=== PATIENT | male | born 1950 | race Caucasian/White ===

== ENCOUNTER 2019-11-18 06:26 | Emergency (ER) | payer OTHER ==
[~2019-11-18] VITALS: Ht 177.8 cm; Wt 84.1 kg
[2019-11-18 06:30] VITALS: BP 132/97
[2019-11-18 06:54] LABS: CLARITY,URINE CLEAR (Clear); COLOR,URINE YELLOW (Yellow); GLUCOSE, URINE NEGATIVE (Neg); KETONES,URINE NEGATIVE (Neg); LEUKOCYTE ESTERASE ,URINE NEGATIVE (Neg); NITRITES, URINE NEGATIVE (Neg); OCCULT BLOOD,URINE TRACE-INTACT (Neg); PH,URINE 6.5 (4.8-8.0); PROTEIN,URINE NEGATIVE (Neg); UROBILINOGEN,URINE 0.2 E.U/dL (0.2-1.0)
[2019-11-18 06:55] LABS: UA COLLECTION TYPE CLN CATCH MIDSTREAM
[2019-11-18 07:26] LABS: BACTERIA,URINE FEW /HPF (Neg); SQUAMOUS EPITHELIAL CELL,UR FEW /LPF (FEW)
[2019-11-18 07:27] LABS: RBC,URINE 0-2 /HPF (0-2); WBC,URINE 0-4 /HPF (0-4)
== END 2019-11-18 07:39 | disposition home or self-care (01) ==
LOC: ER 06:27
DX: R33.9 Retention of urine, unspecified (principal); Z88.1 Allergy status to other antibiotic agents
CPT/HCPCS: 81001; 99283

== ENCOUNTER 2019-11-27 02:20 | Emergency (ER) | payer OTHER ==
[~2019-11-27] VITALS: Ht 177.8 cm; Wt 80.0 kg
[2019-11-27 02:39] VITALS: BP 150/102
--- NOTE | 2019-11-27 02:54 | NUR ---
ON HOLD WITH POISON CONTROL
--- NOTE | 2019-11-27 03:24 | NUR ---
poison control contacted spoke with [place], poison control verbalized if lungs are clear and saturation wnl patient is clear from poison control following patient tx, Dr. Aguilar aware
== END 2019-11-27 03:50 | disposition home or self-care (01) ==
LOC: ER 02:21
DX: R68.84 Jaw pain (principal); Z77.9 Other contact with and (suspected) exposures hazardous to health; Z00.00 Encounter for general adult medical examination without abnormal findings; Z79.899 Other long term (current) drug therapy
CPT/HCPCS: 99281; 99283

== ENCOUNTER 2020-07-01 02:57 | Emergency (ER) | payer OTHER ==
[2020-07-01 03:05] VITALS: BP 136/84
[2020-07-01] MEDS ORDERED: ondansetron/PF 4mg/2ml inj IV ONE (03:10)
[2020-07-01] MEDS ORDERED: normal saline 1000ML IV soln IVB ONE (03:10)
[2020-07-01 03:29] LABS: BASOPHILS # (AUTO) 0.1 X10'3 (0-0.2); BASOPHILS % (AUTO) 0.6 % (0-1); EOSINOPHILS # (AUTO) 0.2 X10'3 (0-0.9); EOSINOPHILS % (AUTO) 0.9 % (0-6); HEMATOCRIT 48.9 % (42.0-52.0); HEMOGLOBIN 16.2 g/dl (14.0-17.9); LYMPHOCYTES # (AUTO) 0.5 X10'3 (1.1-4.8); LYMPHOCYTES % (AUTO) 2.7 % (21-51); MEAN CORPUSCULAR HEMOGLOBIN 28.6 PG (27.0-31.0); MEAN CORPUSCULAR HGB CONC 33.1 g/dL (33.0-36.5); MEAN CORPUSCULAR VOLUME 86.4 FL (78-98); MEAN PLATELET VOLUME 9.1 FL (7.4-10.4); MONOCYTES # (AUTO) 1.1 X10'3 (0-0.9); MONOCYTES % (AUTO) 5.5 % (2-12); NEUTROPHILS % (AUTO) 90.3 % (42-75); PLATELET COUNT 214 X10'3 (140-440); RED BLOOD COUNT 5.66 X10'6 (4.70-6.10); RED CELL DISTRIBUTION WIDTH 14.1 % (11.5-14.5); WHITE BLOOD COUNT 19.9 X10'3 (4.5-11.0)
[2020-07-01 03:31] LABS: PARTIAL THROMBOPLASTIN TIME 26 SECONDS (22-32)
[2020-07-01 03:34] LABS: ALANINE AMINOTRANSFERASE 33 U/L (12-78); ALBUMIN 3.6 G/DL (3.4-5.0); ALBUMIN/GLOBULIN RATIO 0.9 (1.1-1.5); ALKALINE PHOSPHATASE 93 IU/L (46-116); ANION GAP 7 (8-16); ASPARTATE AMINO TRANSFERASE 20 U/L (10-37); BILIRUBIN,TOTAL 0.3 MG/DL (0.1-1.0); BLOOD UREA NITROGEN 16 MG/DL (7-18); BUN/CREATININE RATIO 12.7 (5.4-32.0); CALCIUM 8.4 MG/DL (8.5-10.1); CHLORIDE 104 MMOL/L (99-107); CREATININE 1.26 MG/DL (0.60-1.10); GLUCOSE 106 MG/DL (70-104); LIPASE 193 U/L (73-393); MAGNESIUM 1.9 MG/DL (1.5-2.4); POTASSIUM 3.8 MMOL/L (3.5-5.1); SODIUM 139 MMOL/L (135-145); TOTAL CARBON DIOXIDE 27.8 MMOL/L (24-32); TOTAL PROTEIN 7.8 G/DL (6.4-8.2); eGFR 56 ML/MIN
[2020-07-01 04:33] LABS: CLARITY,URINE CLEAR (Clear); COLOR,URINE YELLOW (Yellow); GLUCOSE, URINE NEGATIVE (Neg); KETONES,URINE NEGATIVE (Neg); LEUKOCYTE ESTERASE ,URINE NEGATIVE (Neg); NITRITES, URINE NEGATIVE (Neg); OCCULT BLOOD,URINE NEGATIVE (Neg); PROTEIN,URINE NEGATIVE (Neg); UROBILINOGEN,URINE 0.2 E.U/dL (0.2-1.0)
[2020-07-01 04:37] LABS: UA COLLECTION TYPE VOIDED
[2020-07-01] MEDS ORDERED: ONDA4TAB6 PO (04:47)
[2020-07-01 05:14] LABS: PLATELET ESTIMATE NORMAL; TOTAL CELLS COUNTED 100
== END 2020-07-01 05:12 | disposition home or self-care (01) ==
LOC: ER 02:58
DX: R11.2 Nausea with vomiting, unspecified (principal); R10.10 Upper abdominal pain, unspecified; D72.829 Elevated white blood cell count, unspecified; M35.00 Sjogren syndrome, unspecified; Z88.1 Allergy status to other antibiotic agents; Z79.899 Other long term (current) drug therapy
CPT/HCPCS: 36415; 71045; 80053; 81003; 83690; 83735; 85007; 85025; 85610; 85730; 93005; 96361; 96374; 99285; J2405; J7030

== ENCOUNTER 2021-11-11 14:37 | Emergency (ER) | payer OTHER ==
[~2021-11-11] VITALS: Ht 177.8 cm; Wt 86.4 kg
[~2021-11-11 14:37] MED LIST: ONDA4TAB6 PO
[2021-11-11 14:41] VITALS: BP 148/92
[2021-11-11 15:27] LABS: BASOPHILS # (AUTO) 0.1 X10'3 (0-0.2); BASOPHILS % (AUTO) 1.1 % (0-1); EOSINOPHILS # (AUTO) 0.1 X10'3 (0-0.9); EOSINOPHILS % (AUTO) 2.1 % (0-6); HEMATOCRIT 44.8 % (42.0-52.0); HEMOGLOBIN 15.1 g/dl (14.0-17.9); LYMPHOCYTES # (AUTO) 1.4 X10'3 (1.1-4.8); LYMPHOCYTES % (AUTO) 20.3 % (21-51); MEAN CORPUSCULAR HGB CONC 33.6 g/dL (33.0-36.5); MEAN CORPUSCULAR VOLUME 86.1 FL (78-98); MEAN PLATELET VOLUME 9.1 FL (7.4-10.4); MONOCYTES # (AUTO) 0.6 X10'3 (0-0.9); MONOCYTES % (AUTO) 8.1 % (2-12); NEUTROPHILS # (AUTO) 4.7 X10'3 (1.8-7.7); NEUTROPHILS % (AUTO) 68.4 % (42-75); PLATELET COUNT 189 X10'3 (140-440); RED BLOOD COUNT 5.21 X10'6 (4.70-6.10); RED CELL DISTRIBUTION WIDTH 14.2 % (11.5-14.5); WHITE BLOOD COUNT 6.9 X10'3 (4.5-11.0)
[2021-11-11 15:31] LABS: ALANINE AMINOTRANSFERASE 31 U/L (12-78); ALBUMIN 3.5 G/DL (3.4-5.0); ALBUMIN/GLOBULIN RATIO 0.9 (1.1-1.5); ALKALINE PHOSPHATASE 83 IU/L (46-116); ANION GAP 6 (8-16); ASPARTATE AMINO TRANSFERASE 26 U/L (10-37); BILIRUBIN,TOTAL 0.4 MG/DL (0.1-1.0); BLOOD UREA NITROGEN 13 MG/DL (7-18); BUN/CREATININE RATIO 14.1 (5.4-32.0); CALCIUM 8.5 MG/DL (8.5-10.1); CHLORIDE 106 MMOL/L (99-107); CREATININE 0.92 MG/DL (0.60-1.10); GLUCOSE 119 MG/DL (70-104); SODIUM 140 MMOL/L (135-145); TOTAL CARBON DIOXIDE 28.1 MMOL/L (24-32); TOTAL PROTEIN 7.5 G/DL (6.4-8.2); eGFR 81 ML/MIN
[2021-11-11 15:36] LABS: POTASSIUM 3.9 MMOL/L (3.5-5.1)
== END 2021-11-11 17:30 | disposition home or self-care (01) ==
LOC: ER 14:39
DX: R42 Dizziness and giddiness (principal); Z88.1 Allergy status to other antibiotic agents
CPT/HCPCS: 36415; 71045; 80053; 84484; 85025; 93005; 99285

== ENCOUNTER 2022-09-02 00:56 | Emergency (ER) | payer OTHER ==
[~2022-09-02] VITALS: Ht 177.8 cm; Wt 87.3 kg
[2022-09-02 01:02] VITALS: BP 162/107
[2022-09-02] MEDS ORDERED: naproxen 500mg tablet PO ONE (03:55)
== END 2022-09-02 03:59 | disposition home or self-care (01) ==
LOC: ER 00:57
DX: S00.93XA Contusion of unspecified part of head, initial encounter (principal); Z88.8 Allergy status to other drugs, medicaments and biological substances; Z79.899 Other long term (current) drug therapy; W18.39XA Other fall on same level, initial encounter; Y93.89 Activity, other specified; Y92.89 Other specified places as the place of occurrence of the external cause; Y99.8 Other external cause status
CPT/HCPCS: 72040; 99284

== ENCOUNTER 2022-10-15 15:24 | Emergency (ER) | payer OTHER ==
[~2022-10-15] VITALS: Ht 177.8 cm; Wt 90.6 kg
[2022-10-15 15:42] VITALS: BP 141/87
[2022-10-15] MEDS ORDERED: proparacaine 0.5% ophthalmic drops 15ml EACHEYE ONE (17:55)
== END 2022-10-15 19:01 | disposition home or self-care (01) ==
LOC: ER 15:25
DX: H57.13 Ocular pain, bilateral (principal); Z88.1 Allergy status to other antibiotic agents
CPT/HCPCS: 99283

== ENCOUNTER 2023-03-15 16:31 | Inpatient (IN) | payer MEDICARE, OTHER ==
[~2023-03-15] VITALS: Ht 177.8 cm; Wt 85.5 kg
[2023-03-15] MEDS ORDERED: iohexol 350MG/ML 100ml bottle IV ONE (16:41)
[2023-03-15 17:13] LABS: LYMPHOCYTES # (AUTO) 1.5 X10'3 (1.1-4.8); MEAN CORPUSCULAR VOLUME 87.6 FL (78-98); NEUTROPHILS # (AUTO) 4.8 X10'3 (1.8-7.7); WHITE BLOOD COUNT 7.3 X10'3 (4.5-11.0)
[2023-03-15 17:15] LABS: BASOPHILS # (AUTO) 0.1 X10'3 (0-0.2); EOSINOPHILS # (AUTO) 0.1 X10'3 (0-0.9); EOSINOPHILS % (AUTO) 1.9 % (0-6); HEMATOCRIT 46.2 % (42.0-52.0); HEMOGLOBIN 15.5 g/dl (14.0-17.9); LYMPHOCYTES % (AUTO) 19.9 % (21-51); MEAN CORPUSCULAR HEMOGLOBIN 29.4 PG (27.0-31.0); MEAN CORPUSCULAR HGB CONC 33.6 g/dL (33.0-36.5); MEAN PLATELET VOLUME 8.5 FL (7.4-10.4); MONOCYTES # (AUTO) 0.8 X10'3 (0-0.9); MONOCYTES % (AUTO) 11.3 % (2-12); NEUTROPHILS % (AUTO) 65.9 % (42-75); PLATELET COUNT 213 X10'3 (140-440); RED BLOOD COUNT 5.28 X10'6 (4.70-6.10); RED CELL DISTRIBUTION WIDTH 14.5 % (11.5-14.5)
[2023-03-15 17:30] LABS: ALANINE AMINOTRANSFERASE 23 U/L (12-78); ALBUMIN 3.5 G/DL (3.4-5.0); ALKALINE PHOSPHATASE 79 IU/L (46-116); ANION GAP 9 (8-16); ASPARTATE AMINO TRANSFERASE 5 U/L (10-37); BILIRUBIN,TOTAL 0.2 MG/DL (0.1-1.0); BLOOD UREA NITROGEN 12 MG/DL (7-18); BUN/CREATININE RATIO 13.8 (10.0-20.0); CALCIUM 8.3 MG/DL (8.5-10.1); CHLORIDE 103 MMOL/L (99-107); CREATININE 0.87 MG/DL (0.60-1.10); GLUCOSE 103 MG/DL (70-104); SODIUM 137 MMOL/L (135-145); TOTAL CARBON DIOXIDE 24.7 MMOL/L (24-32); eCRCL 77 ML/MIN; eGFR 86 ML/MIN
[2023-03-15 17:33] LABS: POTASSIUM 3.6 MMOL/L (3.5-5.1)
[2023-03-15 17:58] LABS: APTT 31 SECONDS (22-32); PROTHROMBIN TIME 10.7 SECONDS (9.0-12.0)
[2023-03-15] MEDS ORDERED: FINA5TAB38 PO (18:43)
[2023-03-15] MEDS ORDERED: PANT20TA18 PO (18:43)
[2023-03-15] MEDS ORDERED: LACT1CAP65 PO (18:43)
[2023-03-15] MEDS ORDERED: FLO0.4C PO (18:43)
[2023-03-15] MEDS ORDERED: CALC600T62 PO (18:43)
[2023-03-15] MEDS ORDERED: DOCU-148 PO (18:43)
[2023-03-15] MEDS ORDERED: FAMO-128 PO (18:43)
[2023-03-15] MEDS ORDERED: POLY119P2 PO (18:43)
[2023-03-15] MEDS ORDERED: MAGN400C PO (18:43)
[2023-03-15] MEDS ORDERED: PILO5TAB10 PO (18:43)
[2023-03-15] MEDS ORDERED: FINA5TAB11 PO (18:43)
[2023-03-15] MEDS ORDERED: magnesium 4gm in 100ml NS 100 ML IV PRN (19:30)
[2023-03-15] MEDS ORDERED: HYDROcodone/acetaminophen 5mg/325mg tablet PO PRN (19:30)
[2023-03-15] MEDS ORDERED: acetaminophen 325mg tablet PO PRN (19:30)
[2023-03-15] MEDS ORDERED: HYDROcodone/acetaminophen 10/325mg tab PO PRN (19:30)
[2023-03-15] MEDS ORDERED: magnesium Cl slow-release 64mg tablet PO PRN (19:30)
[2023-03-15] MEDS ORDERED: mag hydrox/Alum hydrox/simeth 30ml oral suspension PO PRN (19:30)
[2023-03-15] MEDS ORDERED: potassium Cl 20 mEq SR tablet PO PRN (19:30)
[2023-03-15] MEDS ORDERED: PILOCARPINE HCL PO PRN (19:30)
[2023-03-15] MEDS ORDERED: magnesium hydroxide 30ml (MOM) UD suspension PO PRN (19:30)
[2023-03-15] MEDS ORDERED: magnesium 2GM in 50ml NS 50 ML IV PRN (19:30)
[2023-03-15] MEDS ORDERED: ondansetron/PF 4mg/2ml inj IV PRN (19:30)
[2023-03-15] MEDS ORDERED: non-formulary drug (Polyethylene Glycol 3350 (Miralax) 17 GM) PO PRN (19:30)
[2023-03-15] MEDS ORDERED: potassium Cl 40MEQ/1/2NS 520ml 520 ML IV PRN (19:30)
[2023-03-15] MEDS ORDERED: morphine 2 MG/ML inj. syringe IV PRN (19:30)
[2023-03-15] MEDS ORDERED: polyethylene glycol 3350 17gm powd pack PO PRN (19:33)
[2023-03-15] MEDS: K and/or MAG REPLACEMENT MC SCH (19:38)
[2023-03-15] MEDS ORDERED: PILOCARPINE HCL 5 MG PO PRN (19:45)
[2023-03-15] MEDS: famotidine 20mg tablet PO SCH (20:08)
[2023-03-15] MEDS: tamsulosin 0.4mg capsule PO SCH (20:08)
[2023-03-15] MEDS: apixaban 5mg tablet PO SCH (20:08)
[2023-03-15] MEDS: docusate sod 100mg capsule PO SCH (20:08)
--- NOTE | 2023-03-15 20:21 | NUR ---
pt requesting food. given crackers, yogurt, applesauce and pitcher of water. passed bedside swallow study
[2023-03-15] MEDS ORDERED: docusate sod 100mg capsule PO SCH (21:00)
--- NOTE | 2023-03-15 22:09 | NUR ---
pt set up with home cpap machine.
--- NOTE | 2023-03-16 00:02 | NUR ---
PT PLACED ON HOSPITAL BED FROM [facility]. PT AMBULATES WELL WITH STAND BY ASSIST.
--- NOTE | 2023-03-16 02:49 | NUR ---
MRI screening form completed and faxed to MRI. see paper chart for form.
[2023-03-16 02:54] LABS: EOSINOPHILS # (AUTO) 0.2 X10'3 (0-0.9); HEMOGLOBIN 15.1 g/dl (14.0-17.9); MONOCYTES # (AUTO) 0.8 X10'3 (0-0.9)
[2023-03-16 02:55] LABS: BASOPHILS # (AUTO) 0.1 X10'3 (0-0.2); BASOPHILS % (AUTO) 1.1 % (0-1); EOSINOPHILS % (AUTO) 2.2 % (0-6); HEMATOCRIT 45.5 % (42.0-52.0); LYMPHOCYTES # (AUTO) 1.5 X10'3 (1.1-4.8); MEAN CORPUSCULAR HEMOGLOBIN 28.9 PG (27.0-31.0); MEAN CORPUSCULAR HGB CONC 33.2 g/dL (33.0-36.5); MEAN CORPUSCULAR VOLUME 87.1 FL (78-98); MEAN PLATELET VOLUME 8.8 FL (7.4-10.4); MONOCYTES % (AUTO) 10.4 % (2-12); NEUTROPHILS % (AUTO) 66.3 % (42-75); PLATELET COUNT 188 X10'3 (140-440); RED BLOOD COUNT 5.23 X10'6 (4.70-6.10); RED CELL DISTRIBUTION WIDTH 14.5 % (11.5-14.5); WHITE BLOOD COUNT 7.6 X10'3 (4.5-11.0)
[2023-03-16 03:14] LABS: ALANINE AMINOTRANSFERASE 21 U/L (12-78); ALBUMIN 3.2 G/DL (3.4-5.0); ALBUMIN/GLOBULIN RATIO 0.9 (1.1-1.5); ALKALINE PHOSPHATASE 74 IU/L (46-116); ANION GAP 9 (8-16); ASPARTATE AMINO TRANSFERASE 21 U/L (10-37); BILIRUBIN,TOTAL 0.3 MG/DL (0.1-1.0); BLOOD UREA NITROGEN 8 MG/DL (7-18); BUN/CREATININE RATIO 10.8 (10.0-20.0); CALCIUM 8.2 MG/DL (8.5-10.1); CHLORIDE 106 MMOL/L (99-107); CHOL/HDL RATIO 4.2 (0.00-4.99); CHOLESTEROL 169 MG/DL (0-200); CREATININE 0.74 MG/DL (0.60-1.10); GLUCOSE 95 MG/DL (70-104); HDL CHOLESTEROL 40 MG/DL (35-60); LDL CHOLESTEROL 108 MG/DL (50-100); MAGNESIUM 2.2 MG/DL (1.5-2.4); POTASSIUM 3.4 MMOL/L (3.5-5.1); SODIUM 140 MMOL/L (135-145); TOTAL CARBON DIOXIDE 25.4 MMOL/L (24-32); TOTAL PROTEIN 6.7 G/DL (6.4-8.2); TRIGLYCERIDES 175 MG/DL (20-135); eCRCL 90 ML/MIN; eGFR > 90 ML/MIN
[2023-03-16] MEDS: potassium Cl 20 mEq SR tablet PO PRN ×3 (06:03→17:31)
--- NOTE | 2023-03-16 06:48 | NUR ---
Patient resting quietly with unlabored breathing, RR normal.
--- NOTE | 2023-03-16 06:51 | NUR ---
Patient has personal cpap machine at bedside.
--- NOTE | 2023-03-16 07:02 | NUR ---
ATTEMPTED TO CALL REPORT. NURSE UNAVAILABLE AT THIS TIME.
--- NOTE | 2023-03-16 07:10 | NUR ---
received report from ed
--- NOTE | 2023-03-16 07:10 | NUR ---
CALLED REPORT TO [facility]
[2023-03-16] MEDS: docusate sod 100mg capsule PO SCH ×2 (07:38→19:46)
[2023-03-16] MEDS: lactobacillus rhamnosus 10,000 MMU CELLS/CAPSULE PO SCH (07:39)
[2023-03-16] MEDS: apixaban 5mg tablet PO SCH ×2 (07:39→19:46)
[2023-03-16] MEDS: tamsulosin 0.4mg capsule PO SCH ×2 (07:40→08:45)
[2023-03-16] MEDS: pantoprazole 40mg Tablet.DR PO SCH (07:40)
[2023-03-16] MEDS: magnesium oxide 400mg tablet PO SCH (07:40)
[2023-03-16] MEDS: calcium carbonate 500mg chew tablet PO SCH (07:41)
[2023-03-16] MEDS: K and/or MAG REPLACEMENT MC SCH ×2 (08:00→20:00)
[2023-03-16] MEDS ORDERED: finasteride 5mg tablet PO SCH (08:00)
[2023-03-16] MEDS: finasteride 5mg tablet PO SCH (08:34)
[2023-03-16 10:00] VITALS: BP 128/76; PULSE 72; RESP 18; TEMP 97.4; O2SAT 97
--- NOTE | 2023-03-16 10:49 | NUR ---
send page to echo about patient having a echo for today - no call back called MRI about patient having an MRI today - MRI told me that they know and they are unsure exactly when they will get to the MRI
[2023-03-16 16:30] VITALS: BP 119/78; PULSE 77; RESP 16; TEMP 97.6; O2SAT 98
[2023-03-16 18:00] VITALS: BP 118/79; PULSE 72; RESP 16; TEMP 98.6; O2SAT 97
--- NOTE | 2023-03-16 18:16 | NUR ---
gave report to gretta patel
[2023-03-16] MEDS: famotidine 20mg tablet PO SCH (19:47)
[2023-03-16 19:58] VITALS: RESP 16; O2SAT 97
[2023-03-16 22:00] VITALS: BP 119/73; PULSE 78; RESP 16; TEMP 98.1; O2SAT 96
[2023-03-17 02:45] VITALS: BP 116/71; PULSE 68; RESP 15; TEMP 98; O2SAT 98
[2023-03-17 06:00] VITALS: BP 106/72; PULSE 70; RESP 16; TEMP 98.2; O2SAT 98
[2023-03-17 06:03] LABS: BASOPHILS # (AUTO) 0.1 X10'3 (0-0.2); BASOPHILS % (AUTO) 0.8 % (0-1); EOSINOPHILS # (AUTO) 0.2 X10'3 (0-0.9); EOSINOPHILS % (AUTO) 2.2 % (0-6); HEMOGLOBIN 15.1 g/dl (14.0-17.9); LYMPHOCYTES # (AUTO) 1.8 X10'3 (1.1-4.8); LYMPHOCYTES % (AUTO) 21.5 % (21-51); MEAN CORPUSCULAR HEMOGLOBIN 28.8 PG (27.0-31.0); MEAN CORPUSCULAR HGB CONC 32.8 g/dL (33.0-36.5); MEAN CORPUSCULAR VOLUME 87.7 FL (78-98); MEAN PLATELET VOLUME 9.8 FL (7.4-10.4); MONOCYTES # (AUTO) 0.9 X10'3 (0-0.9); MONOCYTES % (AUTO) 11.4 % (2-12); NEUTROPHILS # (AUTO) 5.3 X10'3 (1.8-7.7); NEUTROPHILS % (AUTO) 64.1 % (42-75); PLATELET COUNT 203 X10'3 (140-440); RED BLOOD COUNT 5.25 X10'6 (4.70-6.10); RED CELL DISTRIBUTION WIDTH 14.6 % (11.5-14.5); WHITE BLOOD COUNT 8.3 X10'3 (4.5-11.0)
[2023-03-17 06:16] LABS: ALANINE AMINOTRANSFERASE 20 U/L (12-78); ALBUMIN 3.2 G/DL (3.4-5.0); ALBUMIN/GLOBULIN RATIO 0.9 (1.1-1.5); ALKALINE PHOSPHATASE 76 IU/L (46-116); ANION GAP 9 (8-16); ASPARTATE AMINO TRANSFERASE 17 U/L (10-37); BILIRUBIN,TOTAL 0.4 MG/DL (0.1-1.0); BLOOD UREA NITROGEN 15 MG/DL (7-18); BUN/CREATININE RATIO 18.8 (10.0-20.0); CALCIUM 8.3 MG/DL (8.5-10.1); CHLORIDE 105 MMOL/L (99-107); GLUCOSE 86 MG/DL (70-104); MAGNESIUM 2.4 MG/DL (1.5-2.4); SODIUM 139 MMOL/L (135-145); TOTAL PROTEIN 6.8 G/DL (6.4-8.2); eCRCL 84 ML/MIN; eGFR > 90 ML/MIN
[2023-03-17] MEDS: magnesium oxide 400mg tablet PO SCH (08:50)
[2023-03-17] MEDS: lactobacillus rhamnosus 10,000 MMU CELLS/CAPSULE PO SCH (08:50)
[2023-03-17] MEDS: docusate sod 100mg capsule PO SCH (08:50)
[2023-03-17] MEDS: tamsulosin 0.4mg capsule PO SCH (08:52)
[2023-03-17] MEDS: finasteride 5mg tablet PO SCH (09:00)
[2023-03-17] MEDS: apixaban 5mg tablet PO SCH (09:00)
[2023-03-17] MEDS: calcium carbonate 500mg chew tablet PO SCH (09:00)
[2023-03-17] MEDS: K and/or MAG REPLACEMENT MC SCH (09:00)
[2023-03-17] MEDS: pantoprazole 40mg Tablet.DR PO SCH (09:00)
[2023-03-17 10:00] VITALS: BP 115/75; PULSE 77; RESP 18; TEMP 97.4; O2SAT 95
[2023-03-17 17:04] VITALS: RESP 18
--- NOTE | 2023-03-17 18:45 | NUR ---
Agree with assessment by Nita YARBROUGH
== END 2023-03-17 16:35 | disposition home or self-care (01) | DRG 69 ==
LOC: ER 16:32 → ED HOLD 19:33 → ORTHO 4S 03-16 07:23
PROVIDERS: ADMIT Internal Medicine; ATTEND Internal Medicine
PROC: 5A09357 Assistance with Respiratory Ventilation, Less than 24 Consecutive Hours, Continuous Positive Airway Pressure (ICD-10-PCS; principal; 2023-03-17)
DX: G45.9 Transient cerebral ischemic attack, unspecified (principal); M26.649 Arthritis of unspecified temporomandibular joint; M35.00 Sjogren syndrome, unspecified; I48.91 Unspecified atrial fibrillation; I10 Essential (primary) hypertension; K76.0 Fatty (change of) liver, not elsewhere classified; Z79.899 Other long term (current) drug therapy; Z88.1 Allergy status to other antibiotic agents
CPT/HCPCS: 36415; 70450; 70496; 70498; 70551; 71045; 80053; 80061; 82948; 83036; 83735; 85025; 85610; 85730; 87081; 93306; 93880; 99291; G0378; J3490; Q9967